=== PATIENT | female | born 1985 | race Caucasian/White ===

== ENCOUNTER 2017-02-11 11:09 | Emergency (ER) | payer BC, OTHER ==
--- NOTE | 2017-02-11 11:45 | ERNOTE ---
Psychological HPI - Date Date of Service: 02/11/17 - General Chief Complaint: Psychiatric Problem Source: Reports: patient Exam Limitations: Reports: no limitations - Immun/Allergies/Home Medications Allergies/Adverse Reactions: Allergies No Known Allergies Allergy (Verified 02/11/17 11:20) Home Medications: HOME MEDICATIONS SUMAtriptan SUCCINATE [Imitrex] 50 mg PO Q2H PRN 02/11/17 [Last Taken Unknown] - History of Present Illness Narrative: Patient feels very sad and presents to the emergency room for feelings of hopelessness, she has no thoughts of killing herself or hurting herself but she feels sad. Her support system which is her is leaving for a week and she feels abandoned and she feels lonely. She does not have any thoughts of homicide or suicide. Time Seen by Provider: 02/11/17 11:36 Review of Systems - Review of Systems Constitutional: Present: no symptoms reported EYE: Present: no symptoms reported ENT: Present: no symptoms reported Respiratory: Present: no symptoms reported. Absent: shortness of breath, cough Cardiology: Present: no symptoms reported Gastrointestinal/Abdominal: Present: no symptoms reported Genitourinary: Present: no symptoms reported Musculoskeletal: Present: no symptoms reported Skin: Present: no symptoms reported Neurological: Present: headache, other - patient does get frequent headaches for which she is on Imitrex. Her doctor is Dr. Bates Endocrine: Present: no symptoms reported - Family History Mother Family History - Medical: No pertinent hx - Social History Living Situations: home Alcohol Use: none Drug Use: none Psychological Exam - Exam General Appearance: Present: wd/wn, alert, no apparent distress Head Exam: Present: normal inspection, no evidence of injury Neurological: Present: alert, normal mood/affect, calm, director operating II-XII nml as tested , depressed affect, other - patient has no focal neurological deficits but she is sad and tearful and crying in the room. Thoughts/Hallucinations: Present: normal thought pattern Behavior/Eye Contact/Speech: Present: cooperative Eye Exam: Normal inspection: bilateral, PERRL: bilateral, EOMI: bilateral Ears, Nose, Throat: Present: normal ENT inspection Neck: Present: normal inspection, nontender, supple, full range of motion. Absent: limited range of motion Respiratory: Present: no respiratory distress, normal breath sounds, no accessory muscle use, chest nontender, lungs clear Cardiovascular/Chest: Present: regular rate, rhythm, no murmur, normal peripheral pulses Gastrointestinal/Abdominal: Present: normal bowel sounds, nontender, nondistended, soft, no organomegaly Extremity Exam: Present: normal inspection, normal range of motion, no edema Skin Exam: Present: normal color ED Progress - Vital Signs Patient's Vital Signs:: I have reviewed the patient's vital signs. Vital Signs: Vital Signs 02/11/17 11:11 Temperature 36.8 C Pulse Rate 85 Respiratory 12 Rate Blood Pressure 119/72 O2 Sat by Pulse 95 Oximetry - Progress/Reassessment Chief Complaint: Psychiatric Problem Plan - Plan Plan: This patient is sad and depressed, it appears that she is having a stressful time right now in her life. She is tearful and Dr. Kaur presented to the patient's bedside and consulted on the patient diagnosed her with depression however deemed herself stable and appropriate to be discharged home to follow up with him in the clinic on an outpatient basis. Departure Clinical Impression: Depression Qualifiers: Depression Type: unspecified Qualified Code(s): F32.9 - Major depressive disorder, single episode, unspecified - Departure Disposition: Home self-care Condition: Good Instructions: Insomnia Additional Instructions: Please go see Dr. Kaur on an outpatient basis next week. Referrals: Kvng Bates MD [Primary Care Provider] -
[2017-02-11 13:35] VITALS: BP 124/81
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
--- NOTE | 2017-02-11 17:30 | CONS ---
HPI - History of Present Illness Allergies/Adverse Reactions: Allergies No Known Allergies Allergy (Verified 02/11/17 11:20) Home Medications: Home Medications Medication Instructions Recorded Last Taken SUMAtriptan SUCCINATE [Imitrex] 50 mg PO Q2H PRN 02/11/17 Unknown - Family History Mother Family History - Medical: No pertinent hx - Social History Living Situations: home Alcohol Use: none Drug Use: none Procedures D & C POST DELIVERY (07/23/11) DELIVERY OF PRODUCTS OF CONCEPTION, EXTERNAL APPROACH (03/18/16) DRAINAGE OF AMNIOTIC FL, THERAP FROM POC, VIA OPENING (03/18/16) MONITORING NOS (11/01/12) INTRODUCTION OF OTH HORMONE INTO PERIPH VEIN, PERC APPROACH (03/18/16) MEDICAL INDUCTION LABOR (11/01/12) MONITORING OF POC, CARDIAC RATE, VICE PRESIDENT PAYMENT APPROACH (03/18/16) Physical Examination - Exam Vital Signs: Vital Signs - Last Taken Temp 36.8 C 02/11/17 12:00 Pulse 101 H 02/11/17 13:30 Resp 14 02/11/17 13:30 BP 124/81 02/11/17 13:30 Pulse Ox 99 02/11/17 13:30 O2 Oxygen Delivery Method Room Air
== END 2017-02-11 13:30 | disposition home or self-care (01) ==
LOC: ER 11:09
DX: F32.9 Major depressive disorder, single episode, unspecified (principal)